=== PATIENT | female | born 1995 | race Caucasian/White ===

== ENCOUNTER 2023-02-08 15:37 | Emergency (ER) | payer BC ==
[2023-02-08 15:57] VITALS: BP 103/66; PULSE 91; RESP 16; TEMP 98.3; BMI 24.0
[2023-02-08] MEDS ORDERED: RABIES IMMUNE GLOBULIN 300 UNITS/1 ML VIAL IM ONE (17:13)
[2023-02-08] MEDS ORDERED: RABIES VACCINE (PCEC)/PF 2.5 UNIT/VIAL IM ONE ×2 (17:13→18:05)
[2023-02-08] MEDS ORDERED: RABIES IMMUNE GLOBULIN 300 UNITS/1 ML VIAL ONE (17:19)
== END 2023-02-08 18:45 | disposition home or self-care (01) ==
LOC: JERFT 15:37
PROC: 3E0234Z Introduction of Serum, Toxoid and Vaccine into Muscle, Percutaneous Approach (ICD-10-PCS; principal; 2023-02-08)
PROC: 3E0234Z Introduction of Serum, Toxoid and Vaccine into Muscle, Percutaneous Approach (ICD-10-PCS; 2023-02-08)
DX: S61.431A Puncture wound without foreign body of right hand, initial encounter (principal); Z29.14 Encounter for prophylactic rabies immune globulin; W55.81XA Bitten by other mammals, initial encounter
CPT/HCPCS: 90375; 90675; 99284-25

== ENCOUNTER 2023-05-12 11:40 | Emergency (ER) | payer BC ==
[2023-05-12 12:24] VITALS: BP 126/72; PULSE 114; RESP 18; TEMP 98.3; BMI 24.0
[2023-05-12] MEDS ORDERED: ACETAMINOPHEN 1000 MG/100 ML BAG IVPB ONE (13:18)
[2023-05-12] MEDS ORDERED: FAMOTIDINE 20 MG/50 ML IVPB 20 MG/50 ML MG IVPB ONE ×2 (13:18→13:52)
[2023-05-12] MEDS ORDERED: LACTATED RINGERS SOLUTION 1000 ML INFUS.BAG IV ONE (13:18)
[2023-05-12] MEDS ORDERED: ONDANSETRON 4 MG/2 ML VIAL IVPB ONE (13:18)
[2023-05-12] MEDS ORDERED: ONDANSETRON 4 MG/2 ML VIAL ONE (13:52)
[2023-05-12] MEDS ORDERED: ACETAMINOPHEN INJECTION 100 ML IVPB ONE (13:52)
[2023-05-12 14:23] LABS: BASO % 0.5 % (0-2.0); EOS % 0.4 % (0-4.5); HEMATOCRIT 41.4 % (32.4-45.2); HEMOGLOBIN 13.9 GM/dL (10.7-15.3); LYMPH % 22.7 % (8-40); MCH 29.5 pg (25.7-33.7); MCHC 33.6 g/dl (32.0-36.0); MEAN CELL VOLUME 87.8 fl (80-96); MEAN PLT VOLUME 9.5 fl (7.5-11.1); MONO % 7.1 % (3.8-10.2); NEUT % 69.3 % (42.8-82.8); PLATELET COUNT 266 10^3/uL (134-434); RBC 4.71 M/mm3 (3.60-5.2); RDW 13.2 % (11.6-15.6); WHITE BLOOD COUNT 6.5 K/mm3 (4.0-10.0)
[2023-05-12 14:43] LABS: CALCIUM 10.2 mg/dL (8.5-10.1)
[2023-05-12 14:44] LABS: ALBUMIN 4.5 g/dl (3.4-5.0); BLOOD UREA NITROGEN 9.7 mg/dL (7-18); MAGNESIUM 2.2 mg/dL (1.8-2.4)
[2023-05-12 14:47] LABS: CREATININE 0.8 mg/dL (0.55-1.3)
[2023-05-12 14:49] LABS: BILIRUBIN,TOTAL 0.5 mg/dL (0.2-1); TOT PROT 8.6 g/dl (6.4-8.2)
== END 2023-05-12 15:50 | disposition left against medical advice (07) ==
LOC: JER 11:40
PROC: 3E033GC Introduction of Other Therapeutic Substance into Peripheral Vein, Percutaneous Approach (ICD-10-PCS; principal; 2023-05-12)
PROC: 3E033GC Introduction of Other Therapeutic Substance into Peripheral Vein, Percutaneous Approach (ICD-10-PCS; 2023-05-12)
PROC: 3E033NZ Introduction of Analgesics, Hypnotics, Sedatives into Peripheral Vein, Percutaneous Approach (ICD-10-PCS; 2023-05-12)
DX: R55 Syncope and collapse (principal); F41.9 Anxiety disorder, unspecified; R11.2 Nausea with vomiting, unspecified; R07.9 Chest pain, unspecified; R00.0 Tachycardia, unspecified; R25.1 Tremor, unspecified; Z20.822 Contact with and (suspected) exposure to COVID-19
CPT/HCPCS: 0241U-QW; 36415; 80053; 83735; 84443; 84484; 84703; 85025; 93005; 93010; 99284-25